=== PATIENT | male | born 1985 | race African-American/Black ===

== ENCOUNTER 2023-11-25 09:49 | Outpatient (AMB) | payer OTHER, SELFPAY ==
[2023-11-25 09:53] VITALS: BMI 44.6
--- NOTE | 2023-11-25 09:53 | A.OFFVIS_ITS ---
Intake VS Expanded 11/25/23 09:53 12/08/23 09:23 Height 6 ft 6 ft Weight 328 lb 14.875 oz 329 lb BMI 44.6 44.6 Intake Visit Reasons: Lipid Disorder, Morbid Obesity/CONFIRMED Allergies SHELLFISH Allergy (Unknown, Uncoded 08/01/20 15:21) SWELLING HPI Nutrition Presentation Details Pt presents for MNT for obesity. 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 B: Katlyn sausage egg/egl muffin and orange juice , 32 oz water L: [employer]: chicken sand fries, regular soda 7:30 cook at home 1-2 x/wk : baked chick en, cauliflower/carrots/roasted potato, water however admits to frequently eating out Beverages: Water, regular soda, juices > 60 oz /d smokin-4 cig + /d ETOH: Weekends > 4 servings Food frequency Fruits: 0 per day but has fruit juices Dairy: Mostly in cheese Fish: Not including Fried foods: Daily and often more than once a day Non starchy vegetables: Once per week ZTX-Nuqfvib-Lc.Jeor Equation Height 6 ft Weight 329 lb Resting Metabolic Rate 2446.95 Calculated Activity Level Sedentary Calories Needed to Maintain Weight 2936.34 Diagnosis Nutrition problem #1 excessive energy intake As related to (etiology) #1 diagnosis and physical inactivity As evidenced by (sign/symptom) #1 high BMI (44.6 (November 2023)) and no prior educ - nutri rec Monitoring/Goals Nutrition problem monitoring level of knowledge/skill, weight and oral fluids Nutrition goal/outcome wt loss 5lbs in 2 months Learning/Education0 Readiness to learn good Stages of change pre-contemplation Educational materials provided Yes (Reduction, low calorie beverages) Most Recent Diabetes Results: No Data to Display Assessment & Plan Assessment & Plan (1) Morbid obesity with BMI of 45.0-49.9, adult: Code(s): E66.01 - Morbid (severe) obesity due to excess calories; Z68.42 - Body mass index [BMI] 45.0-49.9, adult Plan: Wt: 149 Kg ( 11/2023 ) Est kcal needs as per MSJ: 2900 (40% carb, 30% protein/fat) Est fluid needs as per 25-30 ml/d: 4470 Est prot per day as per 1 g/kg bw: 149 Recommend fiber intake : 8-10 g per day and gradually increase to 25-28 g per day for women and 35-38 g for men or as tolerated Recommend sodium intake per day : less than 2000 mg Educated patient on: ( R = reviewed V = verbalizes understanding N/R = needs review N/A = not applicable * Food sources of carbohydrate, adequate serving sizes and its role in various health conditions: R * Differences between complex carbohydrates a simple carbohydrates, role of fiber in diet: N/R * Lean protein sources of foods: R * Differences between types of fats and role in diet (mono on saturated fat fatty acids, saturated fatty acids, trans fats): R basic low fat * Food sources of sodium in salt and healthy modifications for heart health in kidney health: NR * Vitamins and minerals: N/R * Healthy plate method concept: R * Physical activity: Benefits a precaution: R basic intro Patient Instructions: Work on increasing water intake and reducing on carb containing beverages (aim at greater than 12 cups of water per day Reduce on fried foods, ( removing better, choosing salads verses fries, choosing lower size fries, choose sandwiches with lean protein instead of sandwiches with fried and breaded protein Engage in physical activity goal 30 minutes to 1 hour per day Coding Level of Care Code Nutr Indiv Intake (82588) Diagnoses Morbid obesity with BMI of 45.0-49.9, adult E66.01; Z68.42 Time Spent (min) 30
[2023-12-08 09:23] VITALS: BMI 44.6
== END 2023-11-25 10:32 | disposition home or self-care (01) ==
PROVIDERS: PCP Physician Assistant; Visit Provider Dietitian, Registered
DX: E66.01 Morbid (severe) obesity due to excess calories (principal); Z68.42 Body mass index [BMI] 45.0-49.9, adult

== ENCOUNTER → 2023-11-25 09:49 | Outpatient (BNVA) | payer OTHER, SELFPAY | PROVIDERS: Visit Provider Dietitian, Registered | DX: E66.01 Morbid (severe) obesity due to excess calories (principal); Z68.41 Body mass index [BMI] 40.0-44.9, adult | CPT/HCPCS: 97802 ==

== ENCOUNTER 2025-10-04 03:58 | Emergency (ER) | payer OTHER, SELFPAY ==
--- NOTE | ~2025-10-04 | XR_ITS ---
CLINICAL HISTORY: Twisting Rolling Injury; Pain Swelling 3 views left ankle Comparison: None provided Findings: No fractures or dislocations. No joint effusion. Impression: 1. Left lateral ankle soft tissue swelling. This document has been electronically signed by: Francesca Guillen MD on 10/04/2025 05:36:56
[2025-10-04 04:06] VITALS: BP 135/81; PULSE 94; RESP 20; TEMP 37.1; O2SAT 95; BMI 43.4
--- NOTE | 2025-10-04 04:09 | ED.LOWEXIN ---
HPI - Extremity Injury (Lower) General Chief Complaint: Extremity Injury, Lower Stated Complaint: left ankle injury Time Seen by Provider: 10/04/25 04:07 Source: patient Mode of arrival: ambulatory Limitations: no limitations History of Present Illness ED Provider: Ishmael MCKEON HPI Narrative: Patient is a 40-year-old male presenting to the ED for evaluation of left lateral ankle pain which began shortly after tripping over a curb and suffering an inversion injury yesterday around 17:30. The patient reports he went to [facility] but left without treatment complete after an x-rays obtained, patient does not know the result of the x-rays. The patient denies previous injury to the affected extremity. Related Data Previous Rx's ?Medication ?Instructions ?Recorded acetaminophen 500 mg capsule 1,000 mg (2 x 500 mg) PO .q8 PRN 10/04/25 fever or pain #30 caps ibuprofen 600 mg tablet 600 mg PO Q8H PRN fever or pain 10/04/25 #30 tabs Allergies Allergy/AdvReac Type Severity Reaction Status Date / Time SHELLFISH Allergy Unknown SWELLING Uncoded 10/04/25 04:08 Review of Systems Review of Systems: Yes all other systems are reviewed and are negative PMFSH Social History Social History Smoked in Last 30 Days: Yes Use of substances other than those prescribed or required for medical reasons: No Advance Directives: No Advance Directives Information Provided: Yes Do you have a plan to hurt others: No Plan Physical Exam Vital Signs: Vital Signs: Last Vital Signs Temp 98.8 F 10/04/25 04:06 Pulse 94 10/04/25 04:06 Resp 20 10/04/25 04:06 BP 135/81 10/04/25 04:06 Pulse Ox 95 10/04/25 04:06 O2 Del Method Room Air 10/04/25 04:06 BMI result Body Mass Index 43.4 CONSTITUTIONAL: The patient appears non-toxic, well nourished and in no acute distress. Vital signs as documented. HEAD: Atraumatic, normocephalic. EYES: EOMs grossly intact, pupils equal, conjunctiva clear, no exudate. ENT: Nares patent, no discharge. Airway patent, no audible stridor, visible mucosa is pink and moist without noted lesions. NECK: trachea is midline, no obvious masses or gross abnormalities. CHEST: Symmetric movement, normal appearance. LUNGS: Non-labored work of breathing. CARDIAC: No evidence of hypoperfusion. ABDOMEN: Nondistended, no obvious injury. : Deferred. EXTREMITIES: There is moderate swelling noted to the left ankle with limited range of motion of the toes secondary to pain. Distal CSM is intact, 2+ DP/PT pulses, no open injury. Moves all other extremities spontaneously without reported pain. No obvious injury or deformity noted. NEURO: Alert and oriented x3, CN II-XII appear grossly intact. Cerebellar Functioning grossly intact. Speech clear and appropriate. SKIN: Warm, dry, color appropriate. No rashes or lesions noted. Medications Administered Discontinued Medications Generic Name Dose Route Start Last Admin Trade Name Freq PRN Reason Stop Dose Admin Acetaminophen 975 mg 10/04/25 04:11 10/04/25 04:14 Acetaminophen 325 Mg Tablet PO 10/04/25 04:12 975 mg ONCE ONE Administration Ibuprofen 600 mg 10/04/25 04:11 10/04/25 04:15 Ibuprofen 600 Mg Tablet PO 10/04/25 04:12 600 mg ONCE ONE Administration Lidocaine 1 patch 10/04/25 04:21 10/04/25 04:36 Lidocaine 4 % Patch Adh..Patch TRANSDERMA 10/04/25 04:22 1 patch ONCE ONE Administration Protocol Medical Decision Making Medical Decision Making MDM Narrative: 4:14 AM 10/04/2025 (Neftali MCKEON): Patient is a 40-year-old male presenting to the ED for evaluation of left lateral ankle pain which began shortly after tripping over a curb and suffering an inversion injury yesterday around 17:30. The patient reports he went to [facility] but left without treatment complete after an x-rays obtained, patient does not know the result of the x-rays. The patient denies previous injury to the affected extremity. On exam the patient has mild swelling of the left lateral ankle, no crepitus or bony tenderness, distal CSM is intact, 2+ DP/PT pulses. The patient will be evaluated by x-ray and we will treat with ibuprofen and Tylenol as the patient states he did not receive any medications while at [facility]. 5:57 AM 10/04/2025 (Neftali MCKEON): The patient's x-ray has resulted and shows no acute fracture. Patient is likely suffering from an ankle sprain, will be discharged with Aircast, crutches, and supportive care. Admission/Observation Consideration of admission/observation: Escalation of care including admission/observation considered Radiology Impression Discussion of test interpretation with radiology: I have reviewed the radiologist's reading. Discharge Plan Discharge Clinical Impression: Ankle sprain and strain Patient Disposition: Home, Self-Care Instructions: Ankle Sprain (ED), Crutch Instructions (ED), Ankle Stirrup Splint (ED), P.R.I.C.E. Treatment (ED) Additional Instructions: Thank you for choosing [facility]'s Emergency Department for your care today. Thankfully your x-ray today showed no evidence of an acute fracture. At this time there is no indication for admission to the hospital or continued ED observation, and it is safe to discharge you home. Your symptoms are likely secondary to a strain of your left ankle from your rolling inversion injury earlier today. Please wear the splint provided to reduce pain, please use crutches to bear weight only as tolerated. You should take alternating (staggered) doses of ibuprofen 600mg and Tylenol 1000mg every 4 hours as needed for any additional pain. Please rest the injured area, and apply ice for 20 minutes every hour. Please follow up with your primary care physician for re-evaluation, additional management of your symptoms, and continued preventative care. If you do not have a primary care physician, please call the [facility] at [phone] to establish a new primary care physician. While waiting to establish your new primary care physician, you can call our Walk-in [facility] at [phone] for non-emergency needs. Please return to the emergency department if you develop a severe or sudden change in your symptoms, a fever over 100.4 that does not improve with Tylenol or Ibuprofen, recurrent vomiting, or any other new or worsening symptoms or concerns. Prescriptions: New ibuprofen 600 mg tablet 600 mg PO Q8H PRN (Reason: fever or pain) Qty: 30 0RF acetaminophen 500 mg capsule 1,000 mg PO .q8 PRN (Reason: fever or pain) Qty: 30 0RF Referrals: Vilma Montero MD, PhD [Primary Care Provider, Cardiovascular Disease] Clinical Impression: Ankle sprain and strain [facility] [Provider Group] Clinical Impression: Ankle sprain and strain Print Language: Greek
[2025-10-04] MEDS: Lidocaine 4 % Patch ADH..PATCH 1 PATCH TRANSDERMA (04:36)
--- OUTSIDE RECORDS SUMMARY | 2025-10-04 05:33 | XMS_ITS ---
Author Name [facility] Organization Unknown History of Medication Use Medication Directions Dispensed Refills Start Date End Date Stat us No information available. No information available. completed Allergies Allergen Reaction Severity Comment Documented Date Source Statu s SHELLFISH Critical CT_DOC active Care Team Organization Name Specialty Phone Email Start Date End [facility] te [facility] 02/21/2025 [facility] Thierno Celis [facility] 09/22/202206/15
[2025-10-04 06:13] VITALS: BP 104/53; PULSE 89; RESP 17; TEMP 37.1; O2SAT 98
[2025-10-04 06:31] VITALS: BP 104/53; PULSE 89; RESP 17; TEMP 37.1; O2SAT 98
== END 2025-10-04 06:31 | disposition home or self-care (01) ==
PROVIDERS: Emergency Provider Emergency Medicine; PCP Internal Medicine
DX: S93.402A Sprain of unspecified ligament of left ankle, initial encounter (principal); S96.912A Strain of unspecified muscle and tendon at ankle and foot level, left foot, initial encounter; W18.40XA Slipping, tripping and stumbling without falling, unspecified, initial encounter; Y93.9 Activity, unspecified; Y92.9 Unspecified place or not applicable; Y99.9 Unspecified external cause status
CPT/HCPCS: 73610; 99283; 99284

== ENCOUNTER → 2025-10-04 04:08 | Outpatient (BNV) | payer OTHER, SELFPAY | PROVIDERS: Emergency Provider Emergency Medicine; PCP Internal Medicine; Visit Provider Radiology Diagnostic Radiology | DX: M79.89 Other specified soft tissue disorders (principal) | CPT/HCPCS: 73610 ==